=== PATIENT | female | born 1955 | race Caucasian/White ===

== ENCOUNTER 2022-11-03 08:00 | Inpatient (IN) | payer MEDICARE, OTHER ==
[~2022-11-03] VITALS: Ht 165.1 cm; Wt 86.2 kg
[2022-11-03] VITALS (12 sets, daily range): BP systolic 64–114; BP diastolic 40–69; PULSE 74–84; RESP 18–23; TEMP 97.4; O2SAT 98
[~2022-11-03 08:00] MED LIST: APIX5TAB MT; BENA40TA91 MT; ERGO1250 PO; FOLI-43 MT; FURO40TA5 PO; FURO80TA87 MT; METF-414 PO; METO5TAB7 MT; NAPR-681 MT; POTA-205 MT; POTA8CAP20 MT; TRAZ-251 PO
[2022-11-03] MEDS ORDERED: ONDANSETRON HCL 4MG/2ML INJ IV ONE (08:30)
[2022-11-03] MEDS ORDERED: MORPHINE SULFATE 2 MG/ML CPJ (NOT FOR IM USE) IV ONE (08:30)
[2022-11-03] MEDS ORDERED: DILTIAZEM HCL 5MG/ML 5ML VIAL IV ONE ×2 (08:30→10:45)
[2022-11-03 08:48] LABS: BASOPHILS % 0.1 % (0.0-2.0); EOSINOPHILS % 0.6 % (0.0-5.0); HEMATOCRIT. 46.2 % (36.0-48.0); HEMOGLOBIN. 15.9 g/dL (12.0-16.0); LYMPHOCYTES % 10.6 % (20.0-50.0); MEAN CORPUSCULAR HEMOGLOBIN 30.6 pg (28.0-32.0); MEAN CORPUSCULAR HGB CONC 34.5 g/dL (31.0-37.0); MEAN CORPUSCULAR VOLUME 88.7 fL (81.0-99.0); MEAN PLATELET VOLUME 8.7 fl (7.4-10.4); MONOCYTES % 1.2 % (2.0-8.0); NEUTROPHILS % 87.5 % (40.0-76.0); PLATELET 191 x1000/uL (130-400); RED BLOOD CELL COUNT 5.21 mill/uL (4.2-5.4); RED CELL DISTRIBUTION WIDTH 13.1 % (11.6-14.6); WHITE BLOOD COUNT 11.4 x1000/uL (4.5-11.0)
[2022-11-03 08:58] LABS: CHLORIDE 100 mEq/L (98-107); INDEX HEMOLYSI 1 (1-3); INDEX ICTERIC 1 (1-4); INDEX LIPEMIC 1 (1-3); SODIUM 130 mEq/L (136-145)
[2022-11-03 08:59] LABS: INR 1.1; PARTIAL THROMBOPLASTIN TIME 25.6 sec (23.4-31.0); PROTHROMBIN TIME 11.6 sec (9.6-11.0)
[2022-11-03 09:08] LABS: ALANINE AMINOTRANSFERASE 24 IU/L (13-61); ALBUMIN 3.8 g/dL (3.4-5.0); ASPARTATE AMINOTRANSFERASE 20 IU/L (15-37); BILIRUBIN TOTAL 0.9 mg/dL (0.1-1.0); CALCIUM 9.5 mg/dL (8.5-10.1); CARBON DIOXIDE 24 mEq/L (21-32); CREATININE 1.6 mg/dL (0.6-1.3); ETHANOL BLOOD < 10 mg/dL (-10); GLUCOSE 230 mg/dL (70-105); NT PRO B-TYPE NATRIURETIC PEP 481 pg/mL (5-125); PROTEIN TOTAL 7.3 g/dL (6.0-8.3); TROPONIN I HIGH SENSITIVITY 11 ng/L (<54); UREA NITROGEN BLOOD 51 mg/dL (7-21)
[2022-11-03] MEDS ORDERED: DILTIAZEM HCL 60MG TABLET PO ONE ×2 (09:15→12:00)
[2022-11-03 09:19] LABS: LACTIC ACID 6.7 mmol/L (0.4-2.0)
[2022-11-03] MEDS ORDERED: SODIUM CHLORIDE 0.9% 250 ML IV ONE (10:00)
[2022-11-03] MEDS ORDERED: ALBUMIN HUMAN 12.5GM/50ML (25%) IV NR (10:00)
[2022-11-03 10:50] LABS: AMMONIA 19 uMol/L (<32)
[2022-11-03 11:04] LABS: PHOSPHORUS 1.9 mg/dL (2.5-4.9); THYROID STIMULATING HORMONE 1.6 uIU/mL (0.36-3.74)
[2022-11-03] MEDS ORDERED: MAGNESIUM 1 G PREMIX 100 ML IV NR (11:30)
[2022-11-03] MEDS ORDERED: SODIUM PHOS,M-BASIC-D-BASIC 15 MM in DEXT 5% WATER 245 ML IV NR (12:00)
[2022-11-03] MEDS ORDERED: PIPERACILLIN/TAZ 3.375G PREMIX 50 ML IV NR (14:00)
[2022-11-03] MEDS ORDERED: SODIUM CHLORIDE 0.9% 750 ML IV NR (14:00)
[2022-11-03] MEDS ORDERED: DILTIAZEM HCL 5MG/ML 5ML VIAL IV PRN (14:00)
[2022-11-03] MEDS ORDERED: ACETAMINOPHEN 325MG TABLET PO NR (14:45)
[2022-11-03] MEDS ORDERED: VANCOMYCIN 1G PREMIX 200 ML IV NR (14:45)
[2022-11-03] MEDS ORDERED: PHENYLEPHRINE 50 MG in DEXT 5% WATER 245 ML IV PRN (15:48)
[2022-11-03] MEDS ORDERED: NOREPINEPHRINE 8MG/250ML PMX 250 ML IV ONE (16:00)
[2022-11-03] MEDS: PHENYLEPHRINE 50 MG in DEXT 5% WATER 245 ML IV PRN (16:34)
[2022-11-03 16:48] LABS: *AMPHETAMINES SCREEN URINE NEGATIVE (NEGATIVE); *BARBITURATES SCREEN URINE NEGATIVE (NEGATIVE); *BENZODIAZEPINES SCREEN URINE NEGATIVE (NEGATIVE); *COCAINE SCREEN URINE NEGATIVE (NEGATIVE); CANNABINOID URINE SCREEN NEGATIVE (NEGATIVE); ECSTASY MDMA SCREEN URINE NEGATIVE (NEGATIVE); METHADONE URINE SCREEN NEGATIVE (NEGATIVE); OPIATES URINE SCREEN PRESUMTIVE POSITIVE (NEGATIVE); PHENCYCLIDINE URINE SCREEN NEGATIVE (NEGATIVE)
[2022-11-03] MEDS ORDERED: LORAZEPAM 0.5MG TABLET PO PRN (17:30)
[2022-11-03] MEDS: SODIUM CHLORIDE 0.9% 1,000 ML IV SCH (17:30)
[2022-11-03] MEDS ORDERED: ONDANSETRON HCL 4MG/2ML INJ IV PRN (17:30)
[2022-11-03] MEDS ORDERED: NALOXONE HCL 0.4MG/ML VIAL IV PRN (17:30)
[2022-11-03] MEDS ORDERED: IPRATROPIUM/ALBUTEROL 0.5-3(2.5)MG/3ML NEB HHN PRN (17:30)
[2022-11-03] MEDS ORDERED: ACETAMINOPHEN 325MG TABLET PO PRN ×2 (17:30)
[2022-11-03] MEDS ORDERED: CLONIDINE 0.1MG TABLET PO PRN (17:30)
[2022-11-03] MEDS ORDERED: AMIODARONE HCL 900 MG in DEXT 5% WATER 482 ML IV SCH ×2 (18:00→18:30)
[2022-11-03] MEDS ORDERED: AMIODARONE HCL 150 MG in DEXT 5% WATER 100 ML IV NR (18:30)
[2022-11-03] MEDS: NOREPINEPHRINE 8 MG in DEXTROSE 5% WATER 250 ML IV PRN (18:34)
[2022-11-03] MEDS: HYDROCODONE/ACETAMINOPHEN 5/325MG TABLET PO PRN (18:50)
[2022-11-03 20:12] LABS: POTASSIUM 4.9 mEq/L (3.5-5.1)
[2022-11-03 20:19] LABS: CALCIUM 8.7 mg/dL (8.5-10.1); CREATININE 2.4 mg/dL (0.6-1.3); PHOSPHORUS 3.3 mg/dL (2.5-4.9)
[2022-11-04] VITALS (117 sets, daily range): BP systolic 54–178; BP diastolic 27–118; PULSE 67–120; RESP 9–57; TEMP 91.6–98.6
[2022-11-04] MEDS ORDERED: APIX5TAB PO (00:04)
[2022-11-04] MEDS ORDERED: SPIR100T5 PO ×2 (00:05→00:15)
[2022-11-04] MEDS ORDERED: POTA-354 PO (00:15)
[2022-11-04] MEDS ORDERED: FURO40SO PO (00:15)
[2022-11-04] MEDS: HYDROCODONE/ACETAMINOPHEN 5/325MG TABLET PO PRN ×2 (01:00→14:43)
[2022-11-04] MEDS ORDERED: FUROSEMIDE 20MG TABLET PO SCH (01:00)
[2022-11-04] MEDS: SODIUM CHLORIDE 0.9% 1,000 ML IV SCH ×2 (01:01→08:46)
[2022-11-04] MEDS: NOREPINEPHRINE 8 MG in DEXTROSE 5% WATER 250 ML IV PRN ×6 (01:04→14:56)
[2022-11-04] MEDS: PIPERACILLIN/TAZOBACTAM 3.375G in DEXT 5% WATER 50ML IV SCH ×4 (01:11→21:15)
[2022-11-04] MEDS: PHENYLEPHRINE 50 MG in DEXT 5% WATER 245 ML IV PRN (02:38)
[2022-11-04 05:37] LABS: BASOPHILS % 0.1 % (0.0-2.0); DIFFERENTIAL COMMENT 0; HEMATOCRIT. 46.6 % (36.0-48.0); HEMOGLOBIN. 15.8 g/dL (12.0-16.0); LYMPHOCYTES % 7.7 % (20.0-50.0); MEAN CORPUSCULAR HEMOGLOBIN 30.4 pg (28.0-32.0); MEAN CORPUSCULAR VOLUME 89.4 fL (81.0-99.0); MEAN PLATELET VOLUME 9.1 fl (7.4-10.4); MONOCYTES % 7.3 % (2.0-8.0); NEUTROPHILS % 84.9 % (40.0-76.0); PLATELET 151 x1000/uL (130-400); RED BLOOD CELL COUNT 5.21 mill/uL (4.2-5.4); RED CELL DISTRIBUTION WIDTH 13.6 % (11.6-14.6); WHITE BLOOD COUNT 14.7 x1000/uL (4.5-11.0)
[2022-11-04 06:15] LABS: CHLORIDE 101 mEq/L (98-107); INDEX HEMOLYSI 1 (1-3); INDEX ICTERIC 1 (1-4); INDEX LIPEMIC 1 (1-3); POTASSIUM 5.1 mEq/L (3.5-5.1); SODIUM 129 mEq/L (136-145)
[2022-11-04 06:24] LABS: ALANINE AMINOTRANSFERASE 33 IU/L (13-61); ASPARTATE AMINOTRANSFERASE 45 IU/L (15-37); BILIRUBIN TOTAL 0.9 mg/dL (0.1-1.0); CALCIUM 8.6 mg/dL (8.5-10.1); CARBON DIOXIDE 14 mEq/L (21-32); CREATININE 2.8 mg/dL (0.6-1.3); GLUCOSE 240 mg/dL (70-105); PROTEIN TOTAL 6.4 g/dL (6.0-8.3); UREA NITROGEN BLOOD 61 mg/dL (7-21)
[2022-11-04] MEDS ORDERED: LIDOCAINE HCL 1% 10 MG/ML 10ML VIAL ONE (08:27)
[2022-11-04] MEDS ORDERED: DEXTROSE 50% WATER 50ML SYRINGE IV PRN (08:45)
[2022-11-04] MEDS: POTASSIUM CHLORIDE 20MEQ TABLET SR PO SCH ×2 (08:45→14:01)
[2022-11-04] MEDS ORDERED: SPIRONOLACTONE 25MG TABLET PO SCH (09:00)
[2022-11-04] MEDS: FUROSEMIDE 40MG TABLET PO SCH (09:06)
[2022-11-04] MEDS: APIXABAN 5 MG TABLET PO SCH ×2 (09:07→17:31)
[2022-11-04 09:24] LABS: BG BASE EXCESS -10.2 mmol/L (-2.0-2.0); BG CARBOXYHEMOGLOBIN 0.2 % (0.5-1.5); BG DEOXYHEMOGLOBIN 5.3 % (0.0-5.0); BG FRACTION INSPIRED OXYGEN 21; BG HCO3 ACT 14.3 mmol/L (22.0-26.0); BG METHEMOGLOBIN 0.3 % (0.0-1.5); BG OXYGEN SATURATION 94.7 % (92.0-98.5); BG OXYHEMOGLOBIN 94.2 % (94.0-97.0); BG PCO2 29.2 mmHg (35.0-45.0); BG PH 7.308 (7.350-7.450); BG PO2 75.9 mmHg (75.0-100.0); BG SAMPLE SITE RIGHT BRACHIAL; BG TOTAL HEMOGLOBIN 17.1 g/dL (12.0-18.0); BG VENT MODE ROOM AIR
[2022-11-04 11:21] LABS: CLARITY URINE CLEAR (CLEAR); COLOR URINE YELLOW (YELLOW); GLUCOSE URINE NEGATIVE (NEGATIVE); KETONES URINE NEGATIVE (NEGATIVE); LEUKOCYTE ESTERASE URINE NEGATIVE (NEGATIVE); NITRITE URINE NEGATIVE (NEGATIVE); OCCULT BLOOD URINE NEGATIVE (NEGATIVE); PH URINE 5.5 (4.5-8.0); PROTEIN URINE 1+ (NEGATIVE); SPECIFIC GRAVITY URINE 1.012 (1.005-1.030); UROBILINOGEN URINE 0.2 E.U./dL (0.2-1.0)
[2022-11-04 11:23] LABS: BACTERIA URINE NONE SEEN; RBC URINE 0-2 /hpf (0-2); SQUAMOUS EPITHELIAL CELL URINE NONE SEEN /lpf (RARE/1+); WBC URINE NONE SEEN /hpf (0-2); YEAST URINE NONE SEEN
[2022-11-04 11:37] LABS: HYALINE CASTS URINE 0-5 /lpf
[2022-11-04] MEDS: BLOOD SUGAR DIAGNOSTIC STRIP TEST SCH ×3 (12:11→21:17)
[2022-11-04] MEDS: INSULIN LISPRO 100 UNITS/ML SUBCUT SCH ×3 (12:29→21:16)
[2022-11-04] MEDS ORDERED: VANCOMYCIN 750MG PREMIX 150 ML IV SCH (15:00)
[2022-11-04] MEDS: SODIUM BICARBONATE 100 MEQ in SODIUM CHLORIDE 0.45% 1,000 ML IV SCH (16:36)
[2022-11-04] MEDS: NOREPINEPHRINE 32 MG in DEXT 5% WATER 218 ML IV PRN (17:31)
[2022-11-05] VITALS (91 sets, daily range): BP systolic 42–185; BP diastolic 19–122; PULSE 81–124; RESP 11–23; TEMP 97.4–98.8
[2022-11-05] MEDS: NOREPINEPHRINE 8 MG in DEXTROSE 5% WATER 250 ML IV PRN (03:14)
[2022-11-05] MEDS: PIPERACILLIN/TAZOBACTAM 3.375G in DEXT 5% WATER 50ML IV SCH ×3 (05:53→21:15)
[2022-11-05 06:49] LABS: CALCIUM 7.7 mg/dL (8.5-10.1); POTASSIUM 4.9 mEq/L (3.5-5.1)
[2022-11-05 06:55] LABS: CREATININE 2.6 mg/dL (0.6-1.3)
[2022-11-05 07:43] LABS: BG BASE EXCESS -1.2 mmol/L (-2.0-2.0); BG CARBOXYHEMOGLOBIN 0.2 % (0.5-1.5); BG DEOXYHEMOGLOBIN 6.3 % (0.0-5.0); BG FRACTION INSPIRED OXYGEN 21; BG HCO3 ACT 22.7 mmol/L (22.0-26.0); BG METHEMOGLOBIN 0.1 % (0.0-1.5); BG OXYGEN SATURATION 93.7 % (92.0-98.5); BG OXYHEMOGLOBIN 93.4 % (94.0-97.0); BG PH 7.418 (7.350-7.450); BG PO2 67.8 mmHg (75.0-100.0); BG SAMPLE SITE RIGHT RADIAL; BG TOTAL HEMOGLOBIN 15.2 g/dL (12.0-18.0); BG VENT MODE ROOM AIR
[2022-11-05] MEDS: BLOOD SUGAR DIAGNOSTIC STRIP TEST SCH ×4 (07:50→21:15)
[2022-11-05] MEDS: SODIUM BICARBONATE 100 MEQ in SODIUM CHLORIDE 0.45% 1,000 ML IV SCH ×2 (07:52→22:50)
[2022-11-05] MEDS: INSULIN LISPRO 100 UNITS/ML SUBCUT SCH ×4 (08:20→21:20)
[2022-11-05] MEDS: NOREPINEPHRINE 32 MG in DEXT 5% WATER 218 ML IV PRN (08:43)
[2022-11-05] MEDS: APIXABAN 5 MG TABLET PO SCH ×2 (08:57→17:39)
[2022-11-05] MEDS: FUROSEMIDE 40MG TABLET PO SCH (08:57)
[2022-11-05 09:08] LABS: MEAN CORPUSCULAR HEMOGLOBIN 29.8 pg (28.0-32.0); MEAN CORPUSCULAR HGB CONC 34.1 g/dL (31.0-37.0); MEAN CORPUSCULAR VOLUME 87.5 fL (81.0-99.0); MEAN PLATELET VOLUME 10.6 fl (7.4-10.4); RED BLOOD CELL COUNT 5.03 mill/uL (4.2-5.4); RED CELL DISTRIBUTION WIDTH 13.6 % (11.6-14.6); WHITE BLOOD COUNT 19.4 x1000/uL (4.5-11.0)
[2022-11-05 09:09] LABS: DIFFERENTIAL COMMENT 1
[2022-11-05 09:11] LABS: PLATELET 91 x1000/uL (130-400)
[2022-11-05 09:47] LABS: INDEX HEMOLYSI 2 (1-3)
[2022-11-05 09:53] LABS: CREATINE KINASE 193 IU/L (26-192)
[2022-11-05 10:47] LABS: PLATELET ESTIMATE DECREASED
[2022-11-05] MEDS: HYDROCODONE/ACETAMINOPHEN 5/325MG TABLET PO PRN ×2 (11:21→20:56)
[2022-11-05] MEDS: DOCUSATE SODIUM 100MG CAPSULE PO PRN ×2 (15:05→20:52)
[2022-11-06] VITALS (72 sets, daily range): BP systolic 84–159; BP diastolic 15–95; PULSE 72–101; RESP 13–26; TEMP 98–99.8
[2022-11-06] MEDS: NOREPINEPHRINE 32 MG in DEXT 5% WATER 218 ML IV PRN ×2 (01:50→18:10)
[2022-11-06] MEDS: PIPERACILLIN/TAZOBACTAM 3.375G in DEXT 5% WATER 50ML IV SCH ×3 (06:49→21:09)
[2022-11-06 07:37] LABS: CHLORIDE 99 mEq/L (98-107); INDEX HEMOLYSI 1 (1-3); INDEX ICTERIC 1 (1-4); INDEX LIPEMIC 1 (1-3); POTASSIUM 3.8 mEq/L (3.5-5.1); SODIUM 135 mEq/L (136-145)
[2022-11-06 07:42] LABS: CALCIUM 7.7 mg/dL (8.5-10.1); CARBON DIOXIDE 25 mEq/L (21-32); CREATININE 0.7 mg/dL (0.6-1.3); GLUCOSE 118 mg/dL (70-105); UREA NITROGEN BLOOD 35 mg/dL (7-21)
[2022-11-06] MEDS: INSULIN LISPRO 100 UNITS/ML SUBCUT SCH ×4 (07:48→21:00)
[2022-11-06] MEDS: BLOOD SUGAR DIAGNOSTIC STRIP TEST SCH ×4 (07:48→21:00)
[2022-11-06] MEDS: FUROSEMIDE 40MG TABLET PO SCH (08:31)
[2022-11-06] MEDS: DOCUSATE SODIUM 100MG CAPSULE PO PRN (08:32)
[2022-11-06] MEDS: APIXABAN 5 MG TABLET PO SCH ×2 (08:32→17:44)
[2022-11-06] MEDS: MIDODRINE HCL 5MG TABLET PO SCH ×3 (11:40→17:45)
[2022-11-06] MEDS ORDERED: VANCOMYCIN 1.25GM PMX (XELLIA) 250 ML IV NR (14:00)
[2022-11-06 19:40] LABS: INDEX HEMOLYSI 1 (1-3)
[2022-11-06 20:10] LABS: AMMONIA 11 uMol/L (<32)
[2022-11-06] MEDS: LACTULOSE 20G/30ML UDC PO SCH (21:09)
[2022-11-07] VITALS (67 sets, daily range): BP systolic 69–144; BP diastolic 38–90; PULSE 77–112; RESP 11–26; TEMP 98.2–99.4
[2022-11-07] MEDS ORDERED: VANCOMYCIN 750MG PREMIX 150 ML IV SCH (02:00)
[2022-11-07] MEDS: PIPERACILLIN/TAZOBACTAM 3.375G in DEXT 5% WATER 50ML IV SCH ×3 (05:21→21:54)
[2022-11-07 05:53] LABS: POTASSIUM 3.7 mEq/L (3.5-5.1)
[2022-11-07 06:01] LABS: CALCIUM 8.5 mg/dL (8.5-10.1); CREATININE 1.2 mg/dL (0.6-1.3); PHOSPHORUS 2.6 mg/dL (2.5-4.9)
[2022-11-07 06:03] LABS: BASOPHILS % 0.1 % (0.0-2.0); DIFFERENTIAL COMMENT 0; EOSINOPHILS % 0.3 % (0.0-5.0); HEMATOCRIT. 41.8 % (36.0-48.0); LYMPHOCYTES % 8.1 % (20.0-50.0); MEAN CORPUSCULAR HEMOGLOBIN 29.5 pg (28.0-32.0); MEAN CORPUSCULAR HGB CONC 33.5 g/dL (31.0-37.0); MEAN CORPUSCULAR VOLUME 88.1 fL (81.0-99.0); MEAN PLATELET VOLUME 9.7 fl (7.4-10.4); MONOCYTES % 5.4 % (2.0-8.0); NEUTROPHILS % 86.1 % (40.0-76.0); PLATELET 83 x1000/uL (130-400); RED BLOOD CELL COUNT 4.74 mill/uL (4.2-5.4); RED CELL DISTRIBUTION WIDTH 13.6 % (11.6-14.6); WHITE BLOOD COUNT 15.9 x1000/uL (4.5-11.0)
[2022-11-07 06:04] LABS: LACTIC ACID 2.1 mmol/L (0.4-2.0)
[2022-11-07] MEDS ORDERED: MAGNESIUM 2 G PREMIX 50 ML IV NR (07:30)
[2022-11-07] MEDS ORDERED: POTASSIUM CHLORIDE 20MEQ TABLET SR PO NR (07:30)
[2022-11-07] MEDS: BLOOD SUGAR DIAGNOSTIC STRIP TEST SCH ×4 (07:50→20:35)
[2022-11-07] MEDS ORDERED: SODIUM CHLORIDE 0.9% 500 ML IV ONE (08:15)
[2022-11-07] MEDS: INSULIN LISPRO 100 UNITS/ML SUBCUT SCH ×4 (08:20→20:40)
[2022-11-07] MEDS: APIXABAN 5 MG TABLET PO SCH ×2 (08:53→17:24)
[2022-11-07] MEDS: LACTULOSE 20G/30ML UDC PO SCH ×3 (08:54→17:25)
[2022-11-07] MEDS: MIDODRINE HCL 5MG TABLET PO SCH ×2 (08:54→17:24)
[2022-11-07] MEDS: VANCOMYCIN 500MG PREMIX 100 ML IV SCH (15:14)
[2022-11-07] MEDS: HYDROCODONE/ACETAMINOPHEN 5/325MG TABLET PO PRN (20:26)
[2022-11-08] VITALS (11 sets, daily range): BP systolic 81–126; BP diastolic 38–103; PULSE 73–98; RESP 8–21; TEMP 97.6–98.3
[2022-11-08] MEDS: TRAZODONE HCL 50MG TABLET PO SCH ×3 (00:22→21:12)
[2022-11-08] MEDS: MIDODRINE HCL 5MG TABLET PO SCH ×3 (00:22→17:03)
[2022-11-08] MEDS: VANCOMYCIN 500MG PREMIX 100 ML IV SCH ×2 (02:21→14:27)
[2022-11-08] MEDS: PIPERACILLIN/TAZOBACTAM 3.375G in DEXT 5% WATER 50ML IV SCH ×3 (05:47→21:12)
[2022-11-08 06:22] LABS: CALCIUM 8.4 mg/dL (8.5-10.1); POTASSIUM 4.1 mEq/L (3.5-5.1)
[2022-11-08 06:28] LABS: CREATININE 1.2 mg/dL (0.6-1.3); PHOSPHORUS 2.7 mg/dL (2.5-4.9)
[2022-11-08] MEDS: INSULIN LISPRO 100 UNITS/ML SUBCUT SCH ×4 (07:55→21:12)
[2022-11-08] MEDS: BLOOD SUGAR DIAGNOSTIC STRIP TEST SCH ×4 (07:55→21:12)
[2022-11-08] MEDS: LACTULOSE 20G/30ML UDC PO SCH ×3 (08:24→17:03)
[2022-11-08] MEDS: APIXABAN 5 MG TABLET PO SCH ×2 (08:25→17:03)
[2022-11-08] MEDS ORDERED: APIXABAN 5 MG TABLET PO SCH (09:00)
[2022-11-08] MEDS ORDERED: FUROSEMIDE 40MG TABLET PO SCH (09:00)
[2022-11-08] MEDS ORDERED: METFORMIN HCL 500MG TABLET PO SCH (09:00)
[2022-11-08 09:51] LABS: BASOPHILS % 0.3 % (0.0-2.0); DIFFERENTIAL COMMENT 0; EOSINOPHILS % 2.6 % (0.0-5.0); HEMATOCRIT. 40.3 % (36.0-48.0); HEMOGLOBIN. 13.8 g/dL (12.0-16.0); LYMPHOCYTES % 11.1 % (20.0-50.0); MEAN CORPUSCULAR HGB CONC 34.2 g/dL (31.0-37.0); MEAN CORPUSCULAR VOLUME 87.6 fL (81.0-99.0); MEAN PLATELET VOLUME 9.8 fl (7.4-10.4); MONOCYTES % 9.5 % (2.0-8.0); NEUTROPHILS % 76.5 % (40.0-76.0); PLATELET 102 x1000/uL (130-400); RED CELL DISTRIBUTION WIDTH 13.8 % (11.6-14.6)
[2022-11-08 13:00] LABS: INDEX HEMOLYSI 3 (1-3)
[2022-11-08 13:05] LABS: LACTATE DEHYDROGENASE 264 IU/L (100-240)
[2022-11-08] MEDS: HYDROCODONE/ACETAMINOPHEN 5/325MG TABLET PO PRN (15:58)
[2022-11-09] VITALS (10 sets, daily range): BP systolic 105–131; BP diastolic 47–72; PULSE 70–88; RESP 9–22; TEMP 97.3–98.6
[2022-11-09] MEDS: MIDODRINE HCL 5MG TABLET PO SCH ×3 (00:06→18:02)
[2022-11-09] MEDS: VANCOMYCIN 500MG PREMIX 100 ML IV SCH ×2 (01:05→14:15)
[2022-11-09] MEDS: PIPERACILLIN/TAZOBACTAM 3.375G in DEXT 5% WATER 50ML IV SCH ×3 (05:27→22:01)
[2022-11-09 06:41] LABS: BASOPHILS % 0.3 % (0.0-2.0); EOSINOPHILS % 2.4 % (0.0-5.0); HEMATOCRIT. 38.8 % (36.0-48.0); HEMOGLOBIN. 13.6 g/dL (12.0-16.0); LYMPHOCYTES % 14.1 % (20.0-50.0); MEAN CORPUSCULAR HEMOGLOBIN 30.5 pg (28.0-32.0); MEAN CORPUSCULAR VOLUME 87.3 fL (81.0-99.0); MEAN PLATELET VOLUME 9.1 fl (7.4-10.4); MONOCYTES % 11.2 % (2.0-8.0); PLATELET 132 x1000/uL (130-400); RED BLOOD CELL COUNT 4.44 mill/uL (4.2-5.4); RED CELL DISTRIBUTION WIDTH 13.9 % (11.6-14.6); WHITE BLOOD COUNT 9.1 x1000/uL (4.5-11.0)
[2022-11-09] MEDS: BLOOD SUGAR DIAGNOSTIC STRIP TEST SCH ×4 (07:30→21:00)
[2022-11-09] MEDS: INSULIN LISPRO 100 UNITS/ML SUBCUT SCH ×4 (08:00→21:00)
[2022-11-09 08:08] LABS: CALCIUM 8.7 mg/dL (8.5-10.1); CREATININE 1.1 mg/dL (0.6-1.3)
[2022-11-09] MEDS: LACTULOSE 20G/30ML UDC PO SCH ×3 (08:32→17:56)
[2022-11-09] MEDS: HYDROCODONE/ACETAMINOPHEN 5/325MG TABLET PO PRN ×2 (08:33→17:57)
[2022-11-09] MEDS: APIXABAN 5 MG TABLET PO SCH ×2 (08:34→17:56)
[2022-11-09] MEDS ORDERED: SODIUM CHLORIDE 0.9% 1,000 ML IV SCH (16:15)
[2022-11-10] VITALS (8 sets, daily range): BP systolic 93–139; BP diastolic 51–77; PULSE 66–78; RESP 5–21; TEMP 97.4–98.6
[2022-11-10] MEDS: MIDODRINE HCL 5MG TABLET PO SCH ×3 (01:46→16:58)
[2022-11-10] MEDS: VANCOMYCIN 500MG PREMIX 100 ML IV SCH ×2 (01:47→13:49)
[2022-11-10] MEDS: HYDROCODONE/ACETAMINOPHEN 5/325MG TABLET PO PRN ×3 (04:24→21:09)
[2022-11-10] MEDS: PIPERACILLIN/TAZOBACTAM 3.375G in DEXT 5% WATER 50ML IV SCH ×3 (04:58→21:07)
[2022-11-10 05:44] LABS: BASOPHILS % 0.4 % (0.0-2.0); EOSINOPHILS % 2.8 % (0.0-5.0); HEMATOCRIT. 38.2 % (36.0-48.0); HEMOGLOBIN. 13.3 g/dL (12.0-16.0); LYMPHOCYTES % 13.2 % (20.0-50.0); MEAN CORPUSCULAR HEMOGLOBIN 30.3 pg (28.0-32.0); MEAN CORPUSCULAR HGB CONC 34.9 g/dL (31.0-37.0); MEAN CORPUSCULAR VOLUME 86.9 fL (81.0-99.0); MEAN PLATELET VOLUME 8.9 fl (7.4-10.4); MONOCYTES % 10.7 % (2.0-8.0); NEUTROPHILS % 72.9 % (40.0-76.0); PLATELET 167 x1000/uL (130-400); RED BLOOD CELL COUNT 4.39 mill/uL (4.2-5.4); RED CELL DISTRIBUTION WIDTH 13.7 % (11.6-14.6); WHITE BLOOD COUNT 9.1 x1000/uL (4.5-11.0)
[2022-11-10] MEDS: BLOOD SUGAR DIAGNOSTIC STRIP TEST SCH ×4 (07:30→21:09)
[2022-11-10] MEDS: INSULIN LISPRO 100 UNITS/ML SUBCUT SCH ×4 (08:00→21:00)
[2022-11-10] MEDS: LACTULOSE 20G/30ML UDC PO SCH ×3 (08:59→16:57)
[2022-11-10] MEDS: APIXABAN 5 MG TABLET PO SCH ×2 (08:59→16:58)
[2022-11-10 09:47] LABS: CHLORIDE 109 mEq/L (98-107); INDEX HEMOLYSI 1 (1-3); INDEX ICTERIC 1 (1-4); INDEX LIPEMIC 1 (1-3); POTASSIUM 3.1 mEq/L (3.5-5.1); SODIUM 139 mEq/L (136-145)
[2022-11-10 09:52] LABS: CALCIUM 6.2 mg/dL (8.5-10.1); CARBON DIOXIDE 25 mEq/L (21-32); CREATININE 0.7 mg/dL (0.6-1.3); GLUCOSE 90 mg/dL (70-105); UREA NITROGEN BLOOD 29 mg/dL (7-21)
[2022-11-10] MEDS ORDERED: POTASSIUM CHLORIDE 20MEQ TABLET SR PO NR (11:00)
[2022-11-10] MEDS: LIDOCAINE 5% PATCH TOP SCH (13:32)
[2022-11-10] MEDS: DICLOFENAC SODIUM 1% GEL 50GM TOP SCH ×3 (13:36→21:07)
[2022-11-10] MEDS ORDERED: DICLOFENAC SODIUM 75MG DR (EC) TABLET PO SCH (22:00)
[2022-11-11] VITALS: BP 113/73; PULSE 93; RESP 16; TEMP 97.7
[2022-11-11] MEDS: METHYLPREDNISOLONE SOD SUCC 40MG VIAL IV SCH ×3 (00:52→14:30)
[2022-11-11] MEDS: MIDODRINE HCL 5MG TABLET PO SCH ×2 (00:52→08:39)
[2022-11-11] MEDS: HYDROCODONE/ACETAMINOPHEN 5/325MG TABLET PO PRN ×2 (00:59→15:05)
[2022-11-11] MEDS: VANCOMYCIN 500MG PREMIX 100 ML IV SCH ×2 (01:02→14:30)
[2022-11-11 03:57] VITALS: BP 93/52; PULSE 64; RESP 15; TEMP 97.6
[2022-11-11] MEDS: PIPERACILLIN/TAZOBACTAM 3.375G in DEXT 5% WATER 50ML IV SCH ×2 (05:10→14:30)
[2022-11-11 05:39] LABS: POTASSIUM 4.7 mEq/L (3.5-5.1)
[2022-11-11 05:48] LABS: CALCIUM 8.8 mg/dL (8.5-10.1); URIC ACID 4.9 mg/dL (2.6-7.2)
[2022-11-11 06:24] LABS: BASOPHILS % 0.4 % (0.0-2.0); EOSINOPHILS % 0.7 % (0.0-5.0); HEMATOCRIT. 38.7 % (36.0-48.0); HEMOGLOBIN. 13.2 g/dL (12.0-16.0); LYMPHOCYTES % 11.4 % (20.0-50.0); MEAN CORPUSCULAR HEMOGLOBIN 30.2 pg (28.0-32.0); MEAN CORPUSCULAR HGB CONC 34.1 g/dL (31.0-37.0); MEAN CORPUSCULAR VOLUME 88.4 fL (81.0-99.0); MEAN PLATELET VOLUME 8.8 fl (7.4-10.4); NEUTROPHILS % 83.5 % (40.0-76.0); PLATELET 212 x1000/uL (130-400); RED BLOOD CELL COUNT 4.38 mill/uL (4.2-5.4); RED CELL DISTRIBUTION WIDTH 13.9 % (11.6-14.6); WHITE BLOOD COUNT 11.1 x1000/uL (4.5-11.0)
[2022-11-11] MEDS: BLOOD SUGAR DIAGNOSTIC STRIP TEST SCH ×2 (07:30→12:30)
[2022-11-11 08:00] VITALS: BP 125/60; PULSE 82; RESP 19; TEMP 97.6
[2022-11-11] MEDS: APIXABAN 5 MG TABLET PO SCH ×2 (08:38→16:44)
[2022-11-11] MEDS: LACTULOSE 20G/30ML UDC PO SCH ×3 (08:38→16:41)
[2022-11-11] MEDS: LIDOCAINE 5% PATCH TOP SCH (08:40)
[2022-11-11] MEDS: INSULIN LISPRO 100 UNITS/ML SUBCUT SCH ×2 (08:50→15:13)
[2022-11-11] MEDS ORDERED: DICLOFENAC SODIUM 75MG DR (EC) TABLET PO SCH (09:00)
[2022-11-11 10:29] LABS: ERYTHROCYTE SEDIMENTATION RATE 92 mm/hr (0-30)
[2022-11-11 11:45] VITALS: BP 117/91; PULSE 84; RESP 11; TEMP 97.8
[2022-11-11 15:44] VITALS: BP 139/78; PULSE 78; RESP 22; TEMP 98.2
[2022-11-11] MEDS ORDERED: MIDODRINE HCL 5MG TABLET PO SCH (17:00)
[2022-11-12 10:09] LABS: ANTI-DNA DOUBLE STRANDED QUANT 5 IU/mL (0-9); ANTI-JO 1 ABS <0.2 AI (0.0-0.9); RNP ANTIBODY < 0.2 AI (0.0-0.9); SMITH ANTIBODY < 0.2 AI (0.0-0.9)
[2022-11-12 13:12] LABS: COMPLEMENT C3 145 mg/dL (82-167); COMPLEMENT C4 24 mg/dL (12-38)
== END 2022-11-11 17:06 | DRG 871 ==
LOC: ER 08:00 → CVICU 11:20 → EDBEDREQSVC 15:46 → ENRESERV 21:30 → 5EST 11-07 22:36
PROVIDERS: ADMIT Internal Medicine; ATTEND Internal Medicine
PROC: 05H533Z Insertion of Infusion Device into Right Subclavian Vein, Percutaneous Approach (ICD-10-PCS; principal; 2022-11-04)
PROC: B546ZZA Ultrasonography of Right Subclavian Vein, Guidance (ICD-10-PCS; 2022-11-04)
DX: A40.8 Other streptococcal sepsis (principal); G93.41 Metabolic encephalopathy; K76.7 Hepatorenal syndrome; N17.0 Acute kidney failure with tubular necrosis; R65.21 Severe sepsis with septic shock; E87.20 Acidosis, unspecified; I48.11 Longstanding persistent atrial fibrillation; E87.1 Hypo-osmolality and hyponatremia; I42.0 Dilated cardiomyopathy; L03.115 Cellulitis of right lower limb; K74.60 Unspecified cirrhosis of liver; Z20.822 Contact with and (suspected) exposure to COVID-19; E87.5 Hyperkalemia; I89.0 Lymphedema, not elsewhere classified; D69.6 Thrombocytopenia, unspecified; E87.6 Hypokalemia; I12.9 Hypertensive chronic kidney disease with stage 1 through stage 4 chronic kidney disease, or unspecified chronic kidney disease; I87.2 Venous insufficiency (chronic) (peripheral); K82.8 Other specified diseases of gallbladder; M13.0 Polyarthritis, unspecified; N18.9 Chronic kidney disease, unspecified; J45.909 Unspecified asthma, uncomplicated; E11.22 Type 2 diabetes mellitus with diabetic chronic kidney disease; G89.29 Other chronic pain; K83.8 Other specified diseases of biliary tract; K59.00 Constipation, unspecified; Z86.718 Personal history of other venous thrombosis and embolism; Z79.01 Long term (current) use of anticoagulants; Z85.41 Personal history of malignant neoplasm of cervix uteri; Z90.710 Acquired absence of both cervix and uterus; Z82.49 Family history of ischemic heart disease and other diseases of the circulatory system
CPT/HCPCS: 36415; 36573; 36600; 71045; 71250; 72195; 73560; 73700; 73718; 74176; 76705; 76770; 80048; 80053; 80061; 80202; 80305; 80320; 81003; 82085; 82140; 82306; 82330; 82375; 82533; 82550; 82595; 82805; 82962; 83036; 83520; 83605; 83615; 83735; 83880; 83930; 83970; 84100; 84145; 84443; 84484; 84550; 85025; 85379; 85651; 86147; 86160; 86225; 86235; 86256; 86332; 86431; 86850; 86900; 87077; 87186; 87340; 87426; 87804; 93005; 93306; 93970; 97162; 97166; 97530; 99291; C1725; C9803; J0282; J1815; J2270; J2370; J2405; J2543; J2920; J3370; J3475; J3490; J7030; J7060; P9047; A4315; G0480

== ENCOUNTER 2022-11-11 17:21 | Inpatient (IN) | payer MEDICARE, OTHER ==
[~2022-11-11] VITALS: Ht 165.1 cm; Wt 86.2 kg
[2022-11-11 17:06] VITALS: BP 132/69; PULSE 68; RESP 18; TEMP 98.1
[~2022-11-11 17:21] MED LIST changes: -APIX5TAB MT; +APIX5TAB PO; +FURO40SO PO; -FURO40TA5 PO; -FURO80TA87 MT; -POTA-205 MT; +POTA-354 PO; -POTA8CAP20 MT; +SPIR100T5 PO
[2022-11-11] MEDS ORDERED: ONDANSETRON HCL 4MG/2ML INJ IV PRN (17:45)
[2022-11-11] MEDS ORDERED: ACETAMINOPHEN 325MG TABLET PO PRN ×2 (17:45→18:36)
[2022-11-11] MEDS ORDERED: CLONIDINE 0.1MG TABLET PO PRN (17:45)
[2022-11-11] MEDS ORDERED: IPRATROPIUM/ALBUTEROL 0.5-3(2.5)MG/3ML NEB HHN PRN (17:45)
[2022-11-11] MEDS ORDERED: NALOXONE HCL 0.4 MG/ML 1ML VIAL IV PRN (17:45)
[2022-11-11] MEDS ORDERED: DEXTROSE 50% WATER 50ML SYRINGE IV PRN (17:45)
[2022-11-11] MEDS ORDERED: DOCUSATE SODIUM 100MG CAPSULE PO PRN (17:45)
[2022-11-11] MEDS ORDERED: HYDROCODONE/ACETAMINOPHEN 5/325MG TABLET PO PRN (18:38)
[2022-11-11 20:00] VITALS: BP 135/70; PULSE 70; RESP 20; TEMP 98.4
[2022-11-11] MEDS: BLOOD SUGAR DIAGNOSTIC STRIP TEST SCH (21:44)
[2022-11-11] MEDS: PIPERACILLIN/TAZOBACTAM 3.375 G in DEXTROSE 5% WATER 50 ML IV SCH (21:57)
[2022-11-11] MEDS: LACTULOSE 20G/30ML UDC PO SCH (21:57)
[2022-11-11] MEDS: DICLOFENAC SODIUM 75MG DR (EC) TABLET PO SCH (21:58)
[2022-11-11] MEDS: INSULIN LISPRO 100 UNITS/ML SUBCUT SCH (22:05)
[2022-11-12] MEDS: BLOOD SUGAR DIAGNOSTIC STRIP TEST SCH ×4 (05:45→21:43)
[2022-11-12] MEDS: LACTULOSE 20G/30ML UDC PO SCH ×3 (05:48→22:00)
[2022-11-12] MEDS ORDERED: VANCOMYCIN 500MG PREMIX 100 ML IV SCH (06:00)
[2022-11-12] MEDS: PIPERACILLIN/TAZOBACTAM 3.375 G in DEXTROSE 5% WATER 50 ML IV SCH ×3 (06:23→23:19)
[2022-11-12] MEDS: INSULIN LISPRO 100 UNITS/ML SUBCUT SCH ×4 (06:31→21:40)
[2022-11-12 08:00] VITALS: BP 125/77; PULSE 100; RESP 20; TEMP 97.7
[2022-11-12] MEDS: DICLOFENAC SODIUM 75MG DR (EC) TABLET PO SCH ×2 (08:09→21:30)
[2022-11-12] MEDS: APIXABAN 5 MG TABLET PO SCH ×2 (08:10→16:34)
[2022-11-12] MEDS: LIDOCAINE 5% PATCH TOP SCH (08:11)
[2022-11-12 12:27] LABS: BASOPHILS % 0.2 % (0.0-2.0); EOSINOPHILS % 0.1 % (0.0-5.0); HEMATOCRIT. 40.8 % (36.0-48.0); HEMOGLOBIN. 13.8 g/dL (12.0-16.0); LYMPHOCYTES % 11.6 % (20.0-50.0); MEAN CORPUSCULAR HEMOGLOBIN 30.7 pg (28.0-32.0); MEAN CORPUSCULAR HGB CONC 33.9 g/dL (31.0-37.0); MEAN CORPUSCULAR VOLUME 90.5 fL (81.0-99.0); MEAN PLATELET VOLUME 8.2 fl (7.4-10.4); MONOCYTES % 7.5 % (2.0-8.0); NEUTROPHILS % 80.6 % (40.0-76.0); PLATELET 344 x1000/uL (130-400); RED BLOOD CELL COUNT 4.51 mill/uL (4.2-5.4); RED CELL DISTRIBUTION WIDTH 13.6 % (11.6-14.6); WHITE BLOOD COUNT 10.3 x1000/uL (4.5-11.0)
[2022-11-12 13:15] LABS: CHLORIDE 97 mEq/L (98-107); INDEX HEMOLYSI 1 (1-3); INDEX ICTERIC 1 (1-4); INDEX LIPEMIC 1 (1-3); POTASSIUM 4.5 mEq/L (3.5-5.1); SODIUM 133 mEq/L (136-145)
[2022-11-12 13:26] LABS: ALANINE AMINOTRANSFERASE 18 IU/L (13-61); ALBUMIN 2.2 g/dL (3.4-5.0); ASPARTATE AMINOTRANSFERASE 19 IU/L (15-37); BILIRUBIN TOTAL 0.4 mg/dL (0.1-1.0); CALCIUM 9.1 mg/dL (8.5-10.1); CARBON DIOXIDE 29 mEq/L (21-32); CREATININE 1.1 mg/dL (0.6-1.3); PROTEIN TOTAL 6.6 g/dL (6.0-8.3); UREA NITROGEN BLOOD 46 mg/dL (7-21)
[2022-11-12] MEDS: ERGOCALCIFEROL 50000UNITS CAPSULE PO SCH (14:30)
[2022-11-12 15:16] LABS: GLUCOSE 217 mg/dL (70-105)
[2022-11-12] MEDS: METHYLPREDNISOLONE SOD SUCC 40MG VIAL IV SCH (18:13)
[2022-11-12 20:00] VITALS: BP 138/80; PULSE 84; RESP 20; TEMP 97.9
[2022-11-12] MEDS: MAGIC MOUTHWASH SSP SCH (20:00)
[2022-11-12] MEDS: [UNRECOGNIZED DRUG - OTHER] SSP SCH (20:00)
[2022-11-12] MEDS: VANCOMYCIN 1G PREMIX 200 ML IV SCH (21:31)
[2022-11-13] MEDS: LACTULOSE 20G/30ML UDC PO SCH ×2 (06:00→14:00)
[2022-11-13] MEDS: METHYLPREDNISOLONE SOD SUCC 40MG VIAL IV SCH ×5 (06:00→17:40)
[2022-11-13] MEDS: BLOOD SUGAR DIAGNOSTIC STRIP TEST SCH ×4 (06:09→21:45)
[2022-11-13] MEDS: INSULIN LISPRO 100 UNITS/ML SUBCUT SCH ×4 (06:26→21:45)
[2022-11-13 08:00] VITALS: BP 134/84; PULSE 81; RESP 20; TEMP 97.8
[2022-11-13 08:29] LABS: POTASSIUM 4.8 mEq/L (3.5-5.1)
[2022-11-13 08:46] LABS: CALCIUM 8.8 mg/dL (8.5-10.1); CREATININE 1.1 mg/dL (0.6-1.3); THYROID STIMULATING HORMONE 0.75 uIU/mL (0.36-3.74)
[2022-11-13] MEDS: APIXABAN 5 MG TABLET PO SCH ×2 (08:59→17:39)
[2022-11-13] MEDS: DICLOFENAC SODIUM 75MG DR (EC) TABLET PO SCH ×3 (09:00→21:15)
[2022-11-13] MEDS: [UNRECOGNIZED DRUG - OTHER] SSP SCH ×3 (09:00→17:00)
[2022-11-13] MEDS: MAGIC MOUTHWASH SSP SCH ×3 (09:00→17:00)
[2022-11-13] MEDS: LIDOCAINE 5% PATCH TOP SCH (09:00)
[2022-11-13 09:26] LABS: VITAMIN B12 SERUM > 2000.0 pg/mL (211-911)
[2022-11-13] MEDS ORDERED: LACTULOSE 20G/30ML UDC PO PRN (16:00)
[2022-11-13 20:00] VITALS: BP 142/84; PULSE 94; RESP 18; TEMP 97.9
[2022-11-13] MEDS: VANCOMYCIN 1G PREMIX 200 ML IV SCH (21:45)
[2022-11-13] MEDS: MIDODRINE HCL 5MG TABLET PO SCH (22:07)
[2022-11-14] MEDS: METHYLPREDNISOLONE SOD SUCC 40MG VIAL IV SCH ×3 (06:22→12:13)
[2022-11-14] MEDS: BLOOD SUGAR DIAGNOSTIC STRIP TEST SCH ×4 (06:23→20:33)
[2022-11-14] MEDS: MIDODRINE HCL 5MG TABLET PO SCH ×3 (06:23→21:09)
[2022-11-14 07:21] LABS: HEMATOCRIT. 44.3 % (36.0-48.0); HEMOGLOBIN. 15.1 g/dL (12.0-16.0); MEAN CORPUSCULAR HEMOGLOBIN 30.5 pg (28.0-32.0); MEAN CORPUSCULAR HGB CONC 34.1 g/dL (31.0-37.0); MEAN CORPUSCULAR VOLUME 89.2 fL (81.0-99.0); PLATELET 413 x1000/uL (130-400); RED BLOOD CELL COUNT 4.97 mill/uL (4.2-5.4); RED CELL DISTRIBUTION WIDTH 14.2 % (11.6-14.6); WHITE BLOOD COUNT 4.9 x1000/uL (4.5-11.0)
[2022-11-14 07:42] LABS: CARBON DIOXIDE 23 mEq/L (21-32); CHLORIDE 105 mEq/L (98-107); CREATININE 0.9 mg/dL (0.6-1.3); GLUCOSE 123 mg/dL (70-105); INDEX HEMOLYSI 1 (1-3); INDEX ICTERIC 1 (1-4); INDEX LIPEMIC 1 (1-3); POTASSIUM 4.2 mEq/L (3.5-5.1); SODIUM 137 mEq/L (136-145); UREA NITROGEN BLOOD 46 mg/dL (7-21)
[2022-11-14 07:49] LABS: DIFFERENTIAL COMMENT 1
[2022-11-14 08:00] VITALS: BP 128/89; PULSE 100; RESP 20; TEMP 97.7
[2022-11-14] MEDS: LIDOCAINE 5% PATCH TOP SCH (08:39)
[2022-11-14] MEDS: APIXABAN 5 MG TABLET PO SCH ×2 (08:42→16:15)
[2022-11-14] MEDS: DICLOFENAC SODIUM 75MG DR (EC) TABLET PO SCH ×2 (08:42→21:08)
[2022-11-14] MEDS: [UNRECOGNIZED DRUG - OTHER] SSP SCH ×3 (08:43→16:15)
[2022-11-14] MEDS: MAGIC MOUTHWASH SSP SCH ×3 (08:43→16:15)
[2022-11-14] MEDS: INSULIN LISPRO 100 UNITS/ML SUBCUT SCH ×4 (08:45→21:29)
[2022-11-14] MEDS: PREDNISONE 20MG TABLET PO SCH (16:15)
[2022-11-14 16:49] LABS: PLATELET ESTIMATE INCREASED
[2022-11-14 20:00] VITALS: BP 121/74; PULSE 90; RESP 20; TEMP 98.6
[2022-11-14] MEDS: VANCOMYCIN 1G PREMIX 200 ML IV SCH (20:32)
[2022-11-15] MEDS: MIDODRINE HCL 5MG TABLET PO SCH (05:56)
[2022-11-15] MEDS: BLOOD SUGAR DIAGNOSTIC STRIP TEST SCH ×4 (05:56→21:01)
[2022-11-15] MEDS: INSULIN LISPRO 100 UNITS/ML SUBCUT SCH ×4 (07:31→21:04)
[2022-11-15] MEDS: DICLOFENAC SODIUM 75MG DR (EC) TABLET PO SCH ×2 (08:25→20:56)
[2022-11-15] MEDS: PREDNISONE 20MG TABLET PO SCH ×3 (08:25→17:00)
[2022-11-15] MEDS: APIXABAN 5 MG TABLET PO SCH ×2 (08:25→17:00)
[2022-11-15] MEDS: [UNRECOGNIZED DRUG - OTHER] SSP SCH ×4 (08:25→17:00)
[2022-11-15] MEDS: MAGIC MOUTHWASH SSP SCH ×4 (08:25→17:00)
[2022-11-15] MEDS: LIDOCAINE 5% PATCH TOP SCH (09:00)
[2022-11-15 09:18] VITALS: BP 144/74; PULSE 90; RESP 18; TEMP 98.8
[2022-11-15 20:00] VITALS: BP 129/75; PULSE 84; RESP 20; TEMP 98.1
[2022-11-15] MEDS: VANCOMYCIN 1G PREMIX 200 ML IV SCH (20:41)
[2022-11-16] MEDS: BLOOD SUGAR DIAGNOSTIC STRIP TEST SCH ×4 (06:30→21:10)
[2022-11-16 08:00] VITALS: BP 139/79; PULSE 72; RESP 18; TEMP 98.8
[2022-11-16] MEDS: [UNRECOGNIZED DRUG - OTHER] SSP SCH ×3 (09:00→18:02)
[2022-11-16] MEDS: LIDOCAINE 5% PATCH TOP SCH ×2 (09:00→09:48)
[2022-11-16] MEDS: INSULIN LISPRO 100 UNITS/ML SUBCUT SCH ×4 (09:00→21:26)
[2022-11-16] MEDS: MAGIC MOUTHWASH SSP SCH ×3 (09:00→18:02)
[2022-11-16] MEDS: APIXABAN 5 MG TABLET PO SCH ×2 (09:39→18:01)
[2022-11-16] MEDS: DICLOFENAC SODIUM 75MG DR (EC) TABLET PO SCH ×2 (09:39→21:04)
[2022-11-16] MEDS: PREDNISONE 20MG TABLET PO SCH ×3 (09:40→18:01)
[2022-11-16] MEDS ORDERED: NALOXONE HCL 0.4MG/ML VIAL IV PRN (19:45)
[2022-11-16 20:10] VITALS: BP 142/95; PULSE 92; RESP 18; TEMP 97.9
[2022-11-16] MEDS: VANCOMYCIN 1G PREMIX 200 ML IV SCH (21:04)
[2022-11-17] MEDS: BLOOD SUGAR DIAGNOSTIC STRIP TEST SCH ×4 (06:19→20:47)
[2022-11-17] MEDS: INSULIN LISPRO 100 UNITS/ML SUBCUT SCH ×4 (07:01→20:56)
[2022-11-17 08:00] VITALS: BP 135/85; PULSE 85; RESP 18; TEMP 98
[2022-11-17] MEDS: [UNRECOGNIZED DRUG - OTHER] SSP SCH ×3 (09:50→17:00)
[2022-11-17] MEDS: MAGIC MOUTHWASH SSP SCH ×3 (09:50→17:00)
[2022-11-17] MEDS: APIXABAN 5 MG TABLET PO SCH ×2 (09:56→17:53)
[2022-11-17] MEDS: PREDNISONE 20MG TABLET PO SCH ×3 (09:57→17:53)
[2022-11-17] MEDS: LIDOCAINE 5% PATCH TOP SCH (09:57)
[2022-11-17] MEDS: DICLOFENAC SODIUM 75MG DR (EC) TABLET PO SCH ×2 (09:57→20:47)
[2022-11-17 20:02] VITALS: BP 132/89; PULSE 70; RESP 18; TEMP 98.1
[2022-11-17] MEDS: VANCOMYCIN 1G PREMIX 200 ML IV SCH (20:47)
[2022-11-18] MEDS: BLOOD SUGAR DIAGNOSTIC STRIP TEST SCH ×4 (06:30→21:00)
[2022-11-18 06:41] LABS: BASOPHILS % 0.1 % (0.0-2.0); HEMATOCRIT. 39.7 % (36.0-48.0); HEMOGLOBIN. 13.6 g/dL (12.0-16.0); LYMPHOCYTES % 16.9 % (20.0-50.0); MEAN CORPUSCULAR HEMOGLOBIN 30.4 pg (28.0-32.0); MEAN CORPUSCULAR HGB CONC 34.3 g/dL (31.0-37.0); MEAN CORPUSCULAR VOLUME 88.7 fL (81.0-99.0); MONOCYTES % 6.2 % (2.0-8.0); NEUTROPHILS % 76.8 % (40.0-76.0); PLATELET 566 x1000/uL (130-400); RED BLOOD CELL COUNT 4.48 mill/uL (4.2-5.4); RED CELL DISTRIBUTION WIDTH 14.3 % (11.6-14.6)
[2022-11-18 07:41] LABS: POTASSIUM 4.8 mEq/L (3.5-5.1)
[2022-11-18 07:53] LABS: CALCIUM 8.8 mg/dL (8.5-10.1); CREATININE 1.1 mg/dL (0.6-1.3)
[2022-11-18] MEDS: INSULIN LISPRO 100 UNITS/ML SUBCUT SCH ×4 (07:53→21:00)
[2022-11-18 08:00] VITALS: BP 144/70; PULSE 78; RESP 18; TEMP 99
[2022-11-18] MEDS: HYDROCODONE/ACETAMINOPHEN 5/325MG TABLET PO PRN (09:13)
[2022-11-18] MEDS: PREDNISONE 20MG TABLET PO SCH ×3 (09:13→17:00)
[2022-11-18] MEDS: APIXABAN 5 MG TABLET PO SCH ×2 (09:13→17:00)
[2022-11-18] MEDS: DICLOFENAC SODIUM 75MG DR (EC) TABLET PO SCH (09:15)
[2022-11-18] MEDS: LIDOCAINE 5% PATCH TOP SCH (09:16)
[2022-11-18] MEDS: MAGIC MOUTHWASH SSP SCH ×3 (09:22→17:00)
[2022-11-18] MEDS: [UNRECOGNIZED DRUG - OTHER] SSP SCH ×3 (09:22→17:00)
[2022-11-18 20:00] VITALS: BP 135/88; PULSE 78; RESP 17; TEMP 97.5
[2022-11-19] VITALS: BP 149/82; PULSE 79; RESP 18; TEMP 97.9
[2022-11-19] MEDS: BLOOD SUGAR DIAGNOSTIC STRIP TEST SCH ×4 (07:00→21:44)
[2022-11-19 08:00] VITALS: BP 141/82; PULSE 90; RESP 18; TEMP 97.6
[2022-11-19] MEDS: DICLOFENAC SODIUM 75MG DR (EC) TABLET PO SCH ×2 (09:00→21:00)
[2022-11-19] MEDS: ERGOCALCIFEROL 50000UNITS CAPSULE PO SCH (09:00)
[2022-11-19] MEDS: INSULIN LISPRO 100 UNITS/ML SUBCUT SCH ×4 (09:00→21:00)
[2022-11-19] MEDS: [UNRECOGNIZED DRUG - OTHER] SSP SCH ×3 (09:00→17:00)
[2022-11-19] MEDS: PREDNISONE 20MG TABLET PO SCH ×3 (09:00→17:00)
[2022-11-19] MEDS: MAGIC MOUTHWASH SSP SCH ×3 (09:00→17:00)
[2022-11-19] MEDS: APIXABAN 5 MG TABLET PO SCH ×2 (09:14→17:17)
[2022-11-19] MEDS: LIDOCAINE 5% PATCH TOP SCH (09:23)
[2022-11-19] MEDS ORDERED: IPRATROPIUM/ALBUTEROL 0.5-3(2.5)MG/3ML NEB HHN PRN (11:30)
[2022-11-19 20:00] VITALS: BP 127/68; PULSE 84; RESP 18; TEMP 98.1
[2022-11-20] MEDS: INSULIN LISPRO 100 UNITS/ML SUBCUT SCH ×4 (06:24→21:00)
[2022-11-20] MEDS: BLOOD SUGAR DIAGNOSTIC STRIP TEST SCH ×4 (06:24→21:43)
[2022-11-20 08:00] VITALS: BP 135/83; PULSE 73; RESP 18; TEMP 97
[2022-11-20] MEDS: [UNRECOGNIZED DRUG - OTHER] SSP SCH ×3 (09:00→17:00)
[2022-11-20] MEDS: DICLOFENAC SODIUM 75MG DR (EC) TABLET PO SCH ×2 (09:00→21:00)
[2022-11-20] MEDS: MAGIC MOUTHWASH SSP SCH ×3 (09:00→17:00)
[2022-11-20] MEDS: APIXABAN 5 MG TABLET PO SCH ×2 (09:17→18:00)
[2022-11-20] MEDS: PREDNISONE 20MG TABLET PO SCH ×3 (09:17→17:00)
[2022-11-20] MEDS: LIDOCAINE 5% PATCH TOP SCH (09:22)
[2022-11-20] MEDS: HYDROCODONE/ACETAMINOPHEN 5/325MG TABLET PO PRN (18:05)
[2022-11-20 20:00] VITALS: BP 133/72; PULSE 68; RESP 18; TEMP 97.5
[2022-11-21 08:00] VITALS: BP 123/68; PULSE 75; RESP 18; TEMP 97.1
[2022-11-21] MEDS: APIXABAN 5 MG TABLET PO SCH (08:45)
[2022-11-21 08:47] VITALS: RESP 18
[2022-11-21] MEDS: HYDROCODONE/ACETAMINOPHEN 5/325MG TABLET PO PRN (08:47)
[2022-11-21] MEDS: LIDOCAINE 5% PATCH TOP SCH (08:47)
[2022-11-21] MEDS: DICLOFENAC SODIUM 75MG DR (EC) TABLET PO SCH (08:48)
[2022-11-21] MEDS: INSULIN LISPRO 100 UNITS/ML SUBCUT SCH (08:48)
[2022-11-21] MEDS: MAGIC MOUTHWASH SSP SCH (08:48)
[2022-11-21] MEDS: [UNRECOGNIZED DRUG - OTHER] SSP SCH (08:48)
[2022-11-21] MEDS ORDERED: PREDNISONE 20MG TABLET PO SCH (09:00)
[2022-11-21] MEDS ORDERED: P20 MT (10:19)
[2022-11-21] MEDS ORDERED: FAMO20TA8 MT (10:20)
[2022-11-21 11:14] VITALS: BP 123/68; PULSE 75; TEMP 97.1
[2022-11-21] MEDS: BLOOD SUGAR DIAGNOSTIC STRIP TEST SCH (11:15)
== END 2022-11-21 12:15 | disposition home health service (06) | DRG 73 ==
PROVIDERS: ADMIT Physical Medicine & Rehabilitation Spinal Cord Injury Medicine; ATTEND Internal Medicine
DX: G62.81 Critical illness polyneuropathy (principal); A40.9 Streptococcal sepsis, unspecified; N17.0 Acute kidney failure with tubular necrosis; R65.21 Severe sepsis with septic shock; G93.41 Metabolic encephalopathy; E87.1 Hypo-osmolality and hyponatremia; E87.20 Acidosis, unspecified; I42.0 Dilated cardiomyopathy; L03.115 Cellulitis of right lower limb; R18.8 Other ascites; K74.60 Unspecified cirrhosis of liver; I89.0 Lymphedema, not elsewhere classified; I48.91 Unspecified atrial fibrillation; M10.9 Gout, unspecified; B18.2 Chronic viral hepatitis C; C53.9 Malignant neoplasm of cervix uteri, unspecified; D69.6 Thrombocytopenia, unspecified; E55.9 Vitamin D deficiency, unspecified; K83.8 Other specified diseases of biliary tract; M06.9 Rheumatoid arthritis, unspecified; M13.0 Polyarthritis, unspecified; M32.9 Systemic lupus erythematosus, unspecified; M35.00 Sjogren syndrome, unspecified; R26.9 Unspecified abnormalities of gait and mobility; E87.5 Hyperkalemia; E11.51 Type 2 diabetes mellitus with diabetic peripheral angiopathy without gangrene; R53.1 Weakness; I36.1 Nonrheumatic tricuspid (valve) insufficiency; R53.81 Other malaise; M25.461 Effusion, right knee; E87.6 Hypokalemia; G89.29 Other chronic pain; I10 Essential (primary) hypertension; K82.8 Other specified diseases of gallbladder; Z86.718 Personal history of other venous thrombosis and embolism; Z85.41 Personal history of malignant neoplasm of cervix uteri; Z91.81 History of falling; Z82.49 Family history of ischemic heart disease and other diseases of the circulatory system; Z79.899 Other long term (current) drug therapy
CPT/HCPCS: 36415; 73610; 80048; 80053; 80202; 82607; 82746; 82962; 83036; 84134; 84443; 85025; 92610; 93970; 97110; 97112; 97116; 97162; 97166; 97530; 97535; J1815; J2543; J2920; J3370; J7060; J7512